=== PATIENT | female | born 1990 | race Caucasian/White ===

== ENCOUNTER 2022-03-03 09:10 | Outpatient (CLI) | payer MEDICAID, SELFPAY ==
[2022-03-03 13:24] LABS: Hepatitis B Surface Antigen* Negative (Negative)
[2022-03-03 13:33] LABS: HIV 1/2/P24 Combo Screen* Negative (Negative)
[2022-03-03 13:41] LABS: Hepatitis C Virus Antibody* Negative (Negative)
[2022-03-03 14:38] LABS: Chlamydia DNA Amplified* NOT DETECTED (No Detected); GC DNA Amplified* NOT DETECTED (No Detected)
[2022-03-05 01:32] LABS: Rapid Plasma Reagin (RPR) Non Reactive (Non Reactive)
[2022-03-05 08:45] LABS: Rubella Antibody IgG 7.3 IU/mL
== END 2022-03-03 09:11 | disposition home or self-care (01) ==
PROVIDERS: PCP Nurse Practitioner Family; Visit Provider Advanced Practice Midwife
DX: Z34.91 Encounter for supervision of normal pregnancy, unspecified, first trimester (principal); Z3A.10 10 weeks gestation of pregnancy
CPT/HCPCS: 76801; 86592; 86703; 86762; 86787; 86803; 86850; 86900; 86901; 87086; 87340; 87491; 87591

== ENCOUNTER 2022-05-11 09:42 | Outpatient (CLI) | payer OTHER, SELFPAY ==
--- NOTE | 2022-05-11 09:45 | CRLHL7_ITS ---
For Patients: As a result of the Century Cures Act, medical imaging exams and procedure reports are released immediately into your electronic medical record. You may view this report before your referring provider. If you have questions, please contact your health care provider. INDICATION: Evaluate anatomy. COMPARISON: 03/03/2022 TECHNIQUE: Real time reid scale imaging of the fetus was performed as well as color Doppler analysis of the umbilical vessels. FINDINGS: Sonographic imaging demonstrates a single living intrauterine gestation. Fetus demonstrates a regular cardiac rate of 142 beats per minute. Fetus has a transverse position, head maternal right. The placenta lies anteriorly without evidence of placenta previa. The edge of the placenta is located 5.2 cm from the internal cervical os. Amniotic fluid volume appears normal. Single deepest vertical pocket: 4.8 cm. The cervix is closed and measures 3.6 cm in length. The composite ultrasound gestational age is calculated at 20 weeks 0 days with an estimated sonographic due date of 09/28/2022. The estimated weight is 310 grams which lies at the 24th %. The following biometric measurements were obtained: Biparietal diameter: 4.7 cm/20 weeks 0 days 45th% Head circumference: 17.2 cm/19 weeks 5 days 26th% Abdominal circumference: 14.4 cm/19 weeks 5 days 30th% Femur length: 3.1 cm/19 weeks 5 days 27th% The HC/AC ratio measures: 1.20 range (1.08-1.25) On anatomic survey, there is a normal appearance of the cerebral ventricles, cavum septi pellucidi, cisterna magna and cerebellum. The nose, lips, and facial profile appear normal. The cervical, thoracic and lumbar spine are well visualized and appear normal. There is a normal four-chamber heart view and the left and right ventricular outflow tracts appear normal. The diaphragm and stomach appear normal. The kidneys and bladder also appear normal. There is a normal three-vessel cord and cord insertion site. The four extremities appear normal. IMPRESSION: Normal OB ultrasound exam with concordance of clinical and sonographic dating. No intrinsic abnormalities noted on anatomic survey. Dictated by William Lubin MD @ 05/11/2022 1:03:30 PM (Electronically Signed)
== END 2022-05-11 09:43 | disposition home or self-care (01) ==
LOC: US 09:43
PROVIDERS: PCP Nurse Practitioner Family; Visit Provider Advanced Practice Midwife
DX: Z34.92 Encounter for supervision of normal pregnancy, unspecified, second trimester (principal); Z3A.20 20 weeks gestation of pregnancy
CPT/HCPCS: 76805

== ENCOUNTER 2022-07-05 09:27 | Outpatient (CLI) | payer OTHER, SELFPAY | END 2022-07-05 09:28 | disposition home or self-care (01) | LOC: NFLDREF 07-08 05:49 | PROVIDERS: PCP Nurse Practitioner Family; Referring Provider Nurse Practitioner Family; Visit Provider Advanced Practice Midwife | DX: Z34.90 Encounter for supervision of normal pregnancy, unspecified, unspecified trimester (principal) | CPT/HCPCS: 86592 ==

== ENCOUNTER 2022-08-31 13:59 | Outpatient (CLI) | payer OTHER, SELFPAY ==
[2022-09-01 11:21] LABS: Strep B DNA Probe NEGATIVE (Negative)
[2022-09-01 11:37] LABS: Strep B Pen/Amox Allergy No
== END 2022-08-31 14:00 | disposition home or self-care (01) ==
LOC: NFLDREF 13:59
PROVIDERS: PCP Nurse Practitioner Family; Visit Provider Advanced Practice Midwife
DX: Z34.93 Encounter for supervision of normal pregnancy, unspecified, third trimester (principal); Z3A.36 36 weeks gestation of pregnancy
CPT/HCPCS: 87081; 87653

== ENCOUNTER 2022-09-21 07:16 | Inpatient (IN) | payer OTHER, SELFPAY ==
[2022-09-21] VITALS (15 sets, daily range): BP systolic 116–155; BP diastolic 68–86; PULSE 59–88; RESP 17; TEMP 36.3–37.4; O2SAT 98; BMI 32.0
[2022-09-21 08:04] LABS: Basophils Absolute Auto 0.03 K/uL (0.00-0.30); Basophils Percent Auto 0.3 % (0.0-3.0); Eosinophils Absolute Auto 0.18 K/uL (0.00-0.50); Hematocrit 34.8 % (33.0-51.0); Hemoglobin* 11.6 gm/dL (12.0-16.0); Immature Granulocytes Abs Auto 0.04 K/uL (0.00-0.30); Immature Granulocytes Pct Auto 0.4 %; Lymphocytes Percent Auto 16.3 % (20-44); Mean Corpuscular HGB Conc 33 gm/dL (32-36); Mean Corpuscular Hemoglobin 32 pg (26-34); Mean Corpuscular Volume 95 fL (80-100); Platelet Count* 294 K/uL (140-440); RDW Coefficient of Variation % 12.9 % (11.5-15.5); Red Blood Count 3.66 m/uL (4.00-5.20); White Blood Count* 9.19 K/uL (4.50-11.00)
--- NOTE | 2022-09-21 08:08 | W.PM.LDBA ---
Subjective History of Present Illness Time Seen by Provider: 07:45 Date Seen: 09/21/22 Comments: Rachael is being admitted to Labor and Delivery for IOL for hx of shoulder dystocia. She is a 31 year old G 4 P 3003 at?39.1 weeks gestation. Her full history and physical was dictated by Gladys Quach on 09/20/22. Please see this for details. Her partner is with her for support. She is planning unmedicated , but open to using nitrous again if needed. She did try a membrane sweep and castor oil yesterday which caused some contractions, but did not result in labor. OB Problem List: 1. Hx of shoulder dystocia w/ last , lunged in tub and then Farhat in the bed. May have also been r/t lack of maternal effort/no ctx. 8 lb 3 oz at 41 weeks. Review options of 36 week growth u/s and IOL at 39 weeks if desired. Would like to not be induced if possible. -IOL scheduled 09/21 per pt request, as of 09/13 she was uncertain she wants to keep this 2. Rubella non-immune Has had multiple vaccinations but doesn't develop immunity. Will not need vaccine PP. OB - Problem Based A/P Additional Plan (1) Hx of shoulder dystocia in prior , currently : Status: Acute (2) Encounter for induction of labor: Status: Acute (3) : Status: Acute Plan at 39.1 weeks GBS negative IOL for hx of shoulder dystocia otherwise uncomplicated 1. Admit to L & D 2. Brief review of induction options, she agrees to pitocin augmentation. Pitocin per protocol 3. Continuous monitoring r/t pitocin 4. IV access r/t pitocin 5. Candidate for analgesia of choice. Planning unmedicated , but open to nitrous if needed 6. Not a candidate for waterbirth r/t previous shoulder dystocia hx. 7. Anticipate progress to NVD. Delivery/Labor/Induction Plan Plan: induction Induction method: per pitocin protocol OB Exam Physical Exam Narrative: VSS, afebrile? General Appearance:? Calm, cooperative.? No acute distress.? Normal affect.? Psychiatric Exam: Alert and oriented, appropriate affect? HEENT: normocephalic, neck supple, full ROM? Respiratory:? Symmetrical chest wall movement.? Normal respiratory effort.? Clear to auscultation? Cardiac:? regular rate and rhythm? Abdomen: Gravid, non tender? Extremities:? normal and trace edema? Skin: warm, dry.??? Ctx:? Mild, irregular ctx noted on admit. FHTs:? Baseline: 145.? Variability: moderate.?? Accels: present.??? Decels:? none.? SVE: 2/60/-1, posterior? Membranes: intact? Detailed Labor and Delivery Exam Patient Gravid: Yes
[2022-09-21 08:09] LABS: Slide Review Reflex No
[2022-09-21] MEDS: OXYTOCIN 30 unit/500 ML in NS 30 UNIT/500 ML BAG IVPB (08:23)
[2022-09-21] MEDS: LACTATED RINGERS 1000 ML 1,000 ML 123 ML IV (08:23)
[2022-09-21] MEDS: LACTATED RINGERS 1000 ML 1,000 ML 112 ML IV (16:35)
--- NOTE | 2022-09-21 17:36 | W.PM.VAGDEL1 ---
Procedure Delivery date: 09/21/22 Procedure Done: Global Procedure Details: Rachael labored w/ pitocin ctx noted but not strong. Decision made to procced with AROM, large amount of clear fluid. Ctx noted to be stronger shortly after, pitocin continued. She labored in various positions, including in the tub. She began to feel increasing pressure, and the decision was made to get out of the tub r/t hx of shoulder dystocia. She tried hands and knees on the bed, and switched to squatting with the bar. Continued to push, and joshua noted, delivery occurred shortly after. At 1714 a viable? female infant delivered in vertex OA presentation over intact perineum via spontaneous vaginal?delivery. ? was placed on maternal abdomen. ?Cord was clamped and cut after a it stopped pulsing.? Nose and mouth were bulb suctioned.? Infant weight pending. ? 7 at 1 minute and 8 at 5 minutes. ?Shoulder dystocia: no. ?Nuchal cord: no. Placenta delivered spontaneously and complete at 1728 with a 3 vessel cord. Mother and were stable after?delivery. Lacerations:? No lacerations noted Blood loss: 125 mL. Blood loss measurement type: QBL? Sponge and needles counts are correct. Intrapartal Events: Labor Augmentation (AROM) and Labor Induction (Pitocin) Delivery augmentation: rupture of membranes Delivery monitor: external FHT and external uterine Route of delivery: Laceration description: None Estimated blood loss (mL): 125 Anesthesia type: Nitrous Disposition: floor Infant Gender: Female presentation: vertex Placental Delivery Description: Spontaneous Cord Description: 3 Vessels OB Vag Delivery Procedures Additional Procedures ECV: No Cook Catheter Insertion: No NST: No D&C: No Laceration Repair: No Tubal Ligation : No Other: No
[2022-09-21] MEDS: ACETAMINOPHEN 500 MG TABLET 1000 MG PO ×2 (17:59→23:43)
[2022-09-21] MEDS: IBUPROFEN 600 MG TABLET PO (21:01)
[2022-09-22] MEDS: IBUPROFEN 600 MG TABLET PO ×3 (03:27→15:54)
[2022-09-22 03:42] VITALS: BP 137/90; PULSE 72; RESP 16; TEMP 36.6; O2SAT 98
[2022-09-22 04:37] VITALS: BP 111/70
[2022-09-22] MEDS: ACETAMINOPHEN 500 MG TABLET 1000 MG PO ×3 (06:15→18:15)
[2022-09-22 07:27] VITALS: BP 128/71; PULSE 79; RESP 16; TEMP 36.8; O2SAT 98
--- NOTE | 2022-09-22 07:52 | P.DS_ITS ---
DS: Providers Provider Date Seen: 09/22/22 Date of admission: 09/21/22 07:16 Primary care physician: Krystin Atkins APRN, PEDIATRIC CLINICAL DIETICIAN Admitting Clinician: Heaven Quach CNM Attending Physician on discharge: Heaven Quach CNM Date of Discharge: 09/22/22 DS: Diagnosis Discharge Diagnosis (1) care following vaginal delivery: Status: Acute (2) due to : Status: Acute Exam Narrative: Exam Narrative: GENERAL APPEARANCE:? normal affect, alert, no distress? MOOD:? appropriate? CHEST:? clear to auscultation and percussion? HEART:? regular rate and rhythm? ABDOMEN:? soft, non-tender the uterine fundus is 2 cm Below Umbilicus, Midline and is appropriate for the stage of recovery. ? PERINEUM:? mild edema of the perineum, perineum is intact and is healing well.? EXTREMITIES:? normal and no edema? Patient has no complaints? No active bleeding?? Doing well? She is requesting discharge home.? Const: Vital Signs, click to edit/add: Vital Signs - 24 hr 09/21/22 08:08 09/21/22 08:08 09/21/22 12:04 Temperature 98.8 F Pulse Rate 64 88 Pulse Rate [Pulse Oximeter] Respiratory Rate Blood Pressure 132/86 125/73 Blood Pressure [Le ft Arm] Pulse Oximetry Oxygen Delivery [facility] 09/21/22 12:04 09/21/22 14:02 09/21/22 14:02 Temperature 99.3 F 97.3 F L Pulse Rate 67 Pulse Rate [Pulse Oximeter] Respiratory Rate Blood Pressure 132/83 Blood Pressure [Le ft Arm] Pulse Oximetry [facility] 09[facility] 17:33 09/21/22 17:33 09/21/22 17:50 Temperature 98.6 F Pulse Rate 71 78 Pulse Rate [Pulse Oximeter] Respiratory Rate Blood Pressure 143/86 H 155/76 H Blood Pressure [Le ft Arm] Pulse Oximetry [facility] 09/21/22 17:50 09/21/22 17:56 09/21/22 18:04 Temperature 99.1 F Pulse Rate 60 68 Pulse Rate [Pulse Oximeter] Respiratory Rate Blood Pressure 137/68 139/72 Blood Pressure [Le ft Arm] Pulse Oximetry Oxygen Delivery [facility] 09/21/22 18:04 09/21/22 18:19 09/21/22 18:19 Temperature 98.8 F 98.8 F Pulse Rate 59 L Pulse Rate [Pulse Oximeter] Respiratory Rate Blood Pressure 137/74 Blood Pressure [Le ft Arm] Pulse Oximetry Oxygen Delivery Me thod 09/21/22 18:34 09/21/22 18:34 09/21/22 18:49 Temperature 98.4 F Pulse Rate 61 74 Pulse Rate [Pulse Oximeter] Respiratory Rate Blood Pressure 126/75 127/73 Blood Pressure [Le ft Arm] Pulse Oximetry Oxygen Delivery Me thod 09/21/22 18:49 09/21/22 19:04 09/21/22 19:04 Temperature 98.7 F 98.2 F Pulse Rate 62 Pulse Rate [Pulse Oximeter] Respiratory Rate Blood Pressure 118/73 Blood Pressure [Le ft Arm] Pulse Oximetry Oxygen Delivery Tn thod 09/21/22 19:19 09/21/22 19:20 09/21/22 19:54 Temperature 97.8 F Pulse Rate 65 Pulse Rate [Pulse Oximeter] 77 Respiratory Rate 17 17 Blood Pressure 123/73 Blood Pressure [Le ft Arm] 123/78 Pulse Oximetry 98 [facility] 09/21/22 23:44 09/22/22 03:42 09/22/22 04:37 Temperature 97.8 F 97.9 F Pulse Rate Pulse Rate [Pulse Oximeter] 69 72 Respiratory Rate 17 16 Blood Pressure Blood Pressure [Le ft Arm] 116/79 137/90 H 111/70 Pulse Oximetry 98 98 [facility] Room Air 09/22/22 07:27 Temperature 98.2 F Pulse Rate Pulse Rate [Pulse Oximeter] 79 Respiratory Rate 16 Blood Pressure Blood Pressure [Le ft Arm] 128/71 Pulse Oximetry 98 [facility] OB - DS: Summary Hospital Course Hospital Course: The patient is a 31 year old G 4 P 4 at 39.1 weeks gestation that was admitted to the Center on 09/21/22 for elective IOL. She had an uncomplicated vaginal delivery. She delivered a viable female infant. She is breast feeding and reports things are well.? the patient has done well.? Her pain is well controlled with current medications.? She has no new complaints.? Vitals have been stable. She has remained afebrile. She is voiding without difficulty. She is passing gas and has not had a bowel movement. She is ambulating and denies any dizziness. She is planning natural family planning for control. She has done this successfully in the past. Encouraged condoms or diaphragm as needed. She declines ibuprofen or stool softener prescriptions and plans to get them over the counter. Peripartum Data Infant delivery method: Vaginal Laceration description: None Episiotomy description: None complications: none [place] Infant Gender: Female Discharge Plan: Home Status at Discharge Functional status at discharge: independent ambulation Overall status at discharge: patient is progressing back to baseline Time Spent with Patient Time attestation: Total time spent providing and/or coordinating discharge services: Discharge Plan Discharge Disposition: Home, Self-Care Date of Admission: 09/21/22 07:16 Attending Provider on Discharge: Rocio James Primary Care Provider: Krystin Atkins Condition: Stable Anticipated Discharge Date/Time: 09/22/22 19:00 Discharge Medications: Continued prenat.vits,josie,[id number] Tablet 1 tab PO QDAY cholecalciferol (vitamin D3) 50 mcg (2,000 unit) capsule 50 mcg PO QDAY omega-3 fatty acids 1,000 mg capsule 1,000 mg PO QDAY Patient Comments: patient takes 1000 DHA and 400mg EPA-3 softgels daily acetaminophen [Tylenol Extra Strength] 500 mg tablet 1,000 mg PO ONCE PRN fluticasone propionate 50 mcg/actuation spray,suspension 1 spray intranasal BID Rx Instructions: administer into each nostril Discharge Orders: Discharge Order (Routine); Ordered 09/22/22 Ordered By: Rocio James Additional Instructions: Discharge instructions were reviewed with the patient including signs and symptoms of infection and home going medications.? Lifting Restrictions: 20 pounds for 6? weeks? ?? Do not drive while taking narcotic pain meds.? Off Work or School for 6 weeks.? ?? Symptoms to report to doctor:? -Bleeding that saturates more than one pad per hour? -Passing clots larger than the size of a golf ball? -Pain not relieved by prescribed medication? -Fever above 100.4 degrees Fahrenheit? -A foul vaginal odor? -Difficulty in emotions, mood and functions? -Thoughts of hurting yourself and/or ? -Painful, reddened area in your breast? -Any drainage, redness or tenderness in your IV/epidural site? -Severe headache that doesn't improve after taking medications? -Changes in vision, including temporary loss of vision, blurred vision, and/or light sensitivity? -Upper abdominal pain (usually under ribs on the right side)? -Decrease in urination or painful, frequent urinating? -Chest pain? -Shortness of breath? -Tenderness or pain with redness and/swelling in the calf(s) of your leg? ?? Follow Up in clinic in 2 and 6 weeks.? ?? consultation services are available to all mothers and babies for the first year after delivery.? To make an appointment, please call [phone].? Activity Level: Activity as Tolerated Discharge Diet: Regular Follow Up Appointments: [facility] [Provider Group] Krystin Atkins, PHYSICIAN INTERVENTIONAL CARDIOLOGIST, PEDIATRIC CLINICAL DIETICIAN [Primary Care Provider] - Forms: MyHealth Info Instructions
[2022-09-22] MEDS: DOCUSATE SODIUM 100 MG CAPSULE PO (13:10)
[2022-09-22 13:11] VITALS: BP 127/80; PULSE 79; RESP 16; TEMP 36.3; O2SAT 98
[2022-09-22 18:29] VITALS: BP 115/60; RESP 16
== END 2022-09-22 18:25 | disposition home or self-care (01) | DRG 560 ==
PROVIDERS: Admitting Provider Advanced Practice Midwife; PCP Nurse Practitioner Family; Visit Provider Advanced Practice Midwife
DX: O80 Encounter for full-term uncomplicated delivery (principal); Z3A.39 39 weeks gestation of pregnancy; Z37.0 Single live birth
CPT/HCPCS: 36415; 85025; 86850; 86900; 86901; A9270; J7120

== ENCOUNTER 2023-11-23 14:15 | Outpatient (CLI) | payer OTHER, SELFPAY | END 2023-11-23 14:16 | disposition home or self-care (01) | PROVIDERS: PCP Nurse Practitioner Family; Visit Provider Registered Nurse | DX: Z34.91 Encounter for supervision of normal pregnancy, unspecified, first trimester (principal); Z3A.09 9 weeks gestation of pregnancy | CPT/HCPCS: 76817; 86592; 86703; 86704; 86706; 86762; 86787; 86803; 86850; 86900; 86901; 87086; 87340 ==

== ENCOUNTER 2023-12-12 11:04 | Outpatient (CLI) | payer OTHER, SELFPAY ==
--- NOTE | 2023-12-12 11:15 | CRLHL7_ITS ---
For Patients: As a result of the Cures Act, medical imaging exams and procedure reports are released immediately into your electronic medical record. You may view this report before your referring provider. If you have questions, please contact your health care provider. RIGHT BREAST ULTRASOUND CLINICAL HISTORY: RIGHT breast lump. COMPARISON: None. TECHNIQUE: Real-time ultrasound imaging of the RIGHT breast with imaging documentation. FINDINGS: Targeted RIGHT breast ultrasound performed at 12 o`clock 3 cm from the nipple. Normal fibroglandular tissue. No solid mass or cyst. Normal vascularity. IMPRESSION: No suspicious findings. RECOMMENDATIONS: Clinical follow-up. Results and recommendations were discussed with the patient at the time of the exam. BI-RADS Category 2: Benign A lay language report of this examination will be provided to the patient. Dictated by William Lubin MD @ 12/12/2023 11:43:41 AM /Dictated by: William Lubin MD @ 12/12/2023 11:43:00 AM (Electronically Signed)
== END 2023-12-12 11:05 | disposition home or self-care (01) ==
PROVIDERS: PCP Nurse Practitioner Family; Visit Provider Registered Nurse
DX: N63.10 Unspecified lump in the right breast, unspecified quadrant (principal)
CPT/HCPCS: 76642

== ENCOUNTER 2024-02-06 12:07 | Outpatient (CLI) | payer OTHER, SELFPAY ==
--- NOTE | 2024-02-06 12:15 | CRLHL7_ITS ---
For Patients: As a result of the Century Cures Act, medical imaging exams and procedure reports are released immediately into your electronic medical record. You may view this report before your referring provider. If you have questions, please contact your health care provider. INDICATION: Evaluate anatomy. COMPARISON: 11/23/2023 TECHNIQUE: Real time reid scale imaging of the fetus was performed as well as color Doppler analysis of the umbilical vessels. FINDINGS: Sonographic imaging demonstrates a single living intrauterine gestation. Fetus demonstrates a regular cardiac rate of 147 beats per minute. Fetus has a vertex position. The placenta lies anteriorly without evidence of placenta previa. Large placental roche is present measuring 10.2 x 2.3 x 7.8 cm. Edge of the placenta located 6.1 cm from the internal cervical os. Amniotic fluid volume appears normal. Single deepest vertical pocket: 4.2 cm. The cervix is closed and measures 4.1 cm in length. The composite ultrasound gestational age is calculated at 20 weeks 1 day with an estimated sonographic due date of 06/24/2024. The estimated weight is 326 grams which lies at the 63rd %. The following biometric measurements were obtained: Biparietal diameter: 4.7 cm/20 weeks 1 day 69th% Head circumference: 17.9 cm/20 weeks 3 days 73rd% Abdominal circumference: 14.9 cm/20 weeks 1 day 59th% Femur length: 3.1 cm/19 weeks 5 days 44th% The HC/AC ratio measures: 1.21 range (1.07-1.25) On anatomic survey, there is a normal appearance of the cerebral ventricles, cavum septi pellucidi, cisterna magna and cerebellum. The nose, lips, and facial profile appear normal. The cervical, thoracic and lumbar spine are well visualized and appear normal. There is a normal four-chamber heart view and the left and right ventricular outflow tracts appear normal. The diaphragm and stomach appear normal. The kidneys and bladder also appear normal. There is a normal three-vessel cord and cord insertion site. The four extremities appear normal. IMPRESSION: Concordance of clinical and sonographic dating. No intrinsic abnormalities noted on anatomic survey. Large placental roche is present measuring 10.2 x 2.3 x 7.8 cm. Dictated by William Lubin MD @ 02/06/2024 2:51:13 PM (Electronically Signed)
== END 2024-02-06 12:08 | disposition home or self-care (01) ==
PROVIDERS: PCP Nurse Practitioner Family; Visit Provider Advanced Practice Midwife
DX: Z34.92 Encounter for supervision of normal pregnancy, unspecified, second trimester (principal); Z3A.20 20 weeks gestation of pregnancy
CPT/HCPCS: 76805

== ENCOUNTER 2024-04-02 13:31 | Outpatient (CLI) | payer OTHER, SELFPAY | END 2024-04-02 13:32 | disposition home or self-care (01) | LOC: NFLDREF 04-09 00:40 | PROVIDERS: PCP Nurse Practitioner Family; Referring Provider Nurse Practitioner Family; Visit Provider Advanced Practice Midwife | DX: Z34.92 Encounter for supervision of normal pregnancy, unspecified, second trimester (principal); Z3A.27 27 weeks gestation of pregnancy | CPT/HCPCS: 86592 ==

== ENCOUNTER 2024-06-06 12:36 | Outpatient (CLI) | payer OTHER, SELFPAY | END 2024-06-06 12:37 | disposition home or self-care (01) | LOC: NFLDREF 06-09 11:41 | PROVIDERS: PCP Nurse Practitioner Family; Referring Provider Nurse Practitioner Family; Visit Provider Advanced Practice Midwife | DX: Z34.83 Encounter for supervision of other normal pregnancy, third trimester (principal) | CPT/HCPCS: 87081; 87653 ==

== ENCOUNTER 2024-06-28 11:43 | Inpatient (IN) | payer OTHER, SELFPAY ==
[2024-06-28] VITALS (19 sets, daily range): BP systolic 113–155; BP diastolic 69–93; PULSE 63–103; RESP 16–18; TEMP 36.4–36.8; O2SAT 97; BMI 31.4
[2024-06-28 11:37] LABS: Amnisure Rom* POSITIVE
--- NOTE | 2024-06-28 11:52 | P.LDBA_ITS ---
Subjective History of Present Illness Date Seen: 06/28/24 Narrative: Patient is being admitted to Labor and Delivery for SROM at term of clear fluid. Amnisure positive. She is a 33 year old at 40 1/7 weeks gestation. Her full history and physical was dictated by me on 06/13/2024. Please see this for details. Specific Issues/Plans G 5 P 4004 H&P completed 06/13/2024 by Judy GUIDO # Bahai needs: Would like a publication manager present if major medical complication occurs. # History of possible shoulder dystocia Subsequent delivery in 2022, no shoulder dystocia Reviewed 04/10 with NDP and discussed with [facility] team who agree that waterbirth is an option with history of subsequent uncomplicated delivery #Rubella non-immune. Per chart review: Has had multiple vaccinations but doesn't develop immunity. Will not need vaccine PP. #Placental roche with 20wk FAS 10.2 x 2.3 x 7.8cm #Hernia referral to general surgery completed, planning to address post could consider elective surgery if progressive symptoms nearing end of but not ideal Imaginst tri US: 11/23/2023-Normal first trimester OB ultrasound exam. Gestational age calculated at 9 weeks 0 days with a sonographic due date of 06/27/2024 Anatomy US: 02/05/2025-Concordance of clinical and sonographic dating. No intrinsic abnormalities noted on anatomic survey. Large placental roche is present measuring 10.2 x 2.3 x 7.8 cm. Flu: [] Covid: Not vaccinated. Recommended. [] Hep B nonimmune. has been revaccinated and does not get immunity OB - Problem Based A/P Additional Plan (1) SROM (spontaneous rupture of membranes): Status: Acute (2) Supervision of other normal : Status: Acute (3) Hx of shoulder dystocia in prior , currently : Problem details: Vague notes, possibly from ineffective pushing with 3rd baby. No problems with 4th. Reviewed with team. Can have a waterbirth Status: Acute Plan ASSESSMENT:?? 33 at 40 1/7 weeks gestation?? complicated by:??placental roche with no vaginal bleeding, inguinal hernia without strangulation Labor type: Spontaneous ROM, Not yet in labor?? Category 1 FHR pattern.??? Labor complicated by: none?? GBS negative PLAN:?? 1. Routine intrapartum cares as ordered. Continue with expectant management, open to pitocin prn when waterbirth room is cleaned.?? 2. Monitoring per policy, intermittent. Continuous if augmented. 3. Planning unmedicated . Desires water . Consent signed. Hep C negative. Candidate for analgesia of choice.??? 4. Patient encouraged to reposition and ambulate to promote physiologic labor and .?? 5. Anticipate ? OB Result Labs Blood Type: A (+) positive Rubella: nonimmune (multiple vaccines and no conversion to immunity) RPR/VDLR: nonreactive GBS Status: negative HBsAG: negative OB Exam Physical Exam Vital signs: Temp Pulse BP 98.2 F 70 120/81 06/28/24 11:36 06/28/24 11:36 06/28/24 11:36 Narrative: Vitals Reviewed Constitutional:? Alert and oriented x3 HEENT:? Normocephalic, atraumatic Neck:? Supple Lungs:? Clear to auscultation bilaterally Heart:? Regular rate and rhythm, no murmur, rub or gallop Abdomen:? Soft, nontender, and gravid. Vertex by Amor's, confirmed with Ultrasound abdominal. Extremities:? No edema or erythema Cervix:deferred due to ROM NST: 130 bpm/moderate variability/accelerations present/decelerations absent/contractions sporadic and mild
[2024-06-28] MEDS: OXYTOCIN 30 unit/500 ML in NS 30 UNIT/500 ML BAG IVPB (14:08)
[2024-06-28] MEDS: LACTATED RINGERS 1000 ML 1,000 ML 125 ML IV (14:08)
[2024-06-28] MEDS: ACETAMINOPHEN 500 MG TABLET 1000 MG PO ×2 (17:54→23:57)
--- NOTE | 2024-06-28 17:55 | W.PM.OBVAGDE ---
OB Procedure Vag Delivery Mother Details Mother Details: The patient is a 33 year-old, 5, Para 4, admitted on 06/28/24 at 40 1/7 weeks gestation. Admission Date: 06/28/24 Additional Details Amniotic Membrane Status: SROM Amniotic Membrane Rupture Date: 06/28/24 Amniotic Membrane Rupture Time: 06:30 Amniotic Membrane Fluid Description: Clear Analgesia/Anesthesia Type: None Waterbirth: No Pitcoin: Yes Intrapartal Events: Labor Augmentation Delivery augmentation: pitocin Labor Onset: 16:00 Complete: 17:36 Pushin:30 (when consistent and productive pushing) Heart: heart tones during second stage were cat 2 with normal baseline, moderate variability, variable decels. Pt very mobile trying to cope with labor. Adjusting monitors frequently as much as able. Delivery Details Delivery Date: 06/28/24 Delivery Time: 17:38 Route of delivery: Gender: Male Viability: Alive; Heart Rate Present Position at Delivery: OA Delivery Details: Patient was admitted for spontaneous rupture of membranes and progressed with augmentation.. SROM noted at 0630 with clear fluid. Baby's head was +2/+3 and Rachael had dilated only 5 cm with a very strong urge to push. coached to breathe, change positions, be open to a longer labor for this baby boy. Pitocin was titrated up as indicated. Eventually she agreed to try pushing the cervix back. A couple attempts were made in the tub but the cervix returned when pressure was released. She agreed to try to get out of the tub with one more attempt in left side lying. this was immediately successful and the cervix retracted completely. She birthed her baby with the next contraction. Patient was complete at 1736 and pushing at 1600 intermittently when she was not complete, unable to fight the urge to push. Productive pushing began at 1736. of a viable male at 1738 in left lateral. Vertex delivered OA. No nuchal cord or shoulder dystocia. Pt preferred to wait for the next contraction after the head was borm. Anterior should delivered with constant traction and flexion of the head. Body delivered easily and without incident. passed to mothers abdomen with a vigorous cry. Cord was clamped and cut at > 5 minutes. APGARS were 9 at one minute and 9 at five minutes respectively. Intact placenta with a 3 vessel cord delivered spontaneously at 1746. Fundus firm. No lacerations. QBL 150 cc. Mother and baby stable; mother plans to breastfeed. weight pending.? 1 Minute Interval Total Score: 9 5 Minute Interval Total Score: 9 Additional Details Shoulder Dystocia: No Placenta Delivery Time: 17:46 Placental Delivery Description: Spontaneous Procedure Done: Global Blood Loss: 150 Laceration: None Blood Loss Measurement Type: QBL Bakri Used: No Sponge/Need Count Correct: Yes Cord Vessel Description: 3 Vessels and Clamped/Cut Event Summary Status: Mother and infant were stable after delivery. Disposition: floor
[2024-06-28] MEDS: IBUPROFEN 600 MG TABLET PO (21:09)
[2024-06-29] MEDS: IBUPROFEN 600 MG TABLET PO ×3 (03:42→15:09)
[2024-06-29 03:59] VITALS: BP 114/76; PULSE 72; RESP 16; TEMP 36.6; O2SAT 98
[2024-06-29 06:42] LABS: Hemoglobin* 10.7 gm/dL (12.0-16.0)
[2024-06-29] MEDS: ACETAMINOPHEN 500 MG TABLET 1000 MG PO (07:13)
[2024-06-29 08:00] VITALS: BP 121/84; PULSE 75; RESP 16; TEMP 36.5; O2SAT 98
--- NOTE | 2024-06-29 08:33 | P.DS_ITS ---
DS: Providers Provider Date Seen: 06/29/24 Date of admission: 06/28/24 11:43 Primary care physician: Krystin Atkins APRN, THREAD CHECKER Admitting Clinician: Louise Chou CNM Attending Physician on discharge: Cait Dejesus CNM DS: Diagnosis Discharge Diagnosis (1) care and examination immediately after delivery: Status: Acute (2) Lactating mother: Status: Acute Exam Narrative: Exam Narrative: GENERAL APPEARANCE:? normal affect, alert, no distress MOOD:? appropriate CHEST:? clear to auscultation HEART:? regular rate and rhythm ABDOMEN:? soft, non-tender the uterine fundus is At Umbilicus, Midline and is appropriate for the stage of recovery. PERINEUM:? mild edema of the perineum. EXTREMITIES:? normal and no edema Const: Vital Signs, click to edit/add: Vital Signs - 24 hr 06/28/24 11:36 06/28/24 14:18 06/28/24 15:09 Temperature 98.2 F 97.8 F 97.5 F L Pulse Rate 70 85 103 H Pulse Rate [Blood Pressure Cuff] Respiratory Rate 16 16 Blood Pressure 120/81 123/83 130/89 Blood Pressure [Ri ght Arm] Pulse Oximetry Oxygen Delivery Me thod 06/28/24 16:21 06/28/24 16:59 06/28/24 17:46 Temperature 97.7 F 98.2 F Pulse Rate 84 86 Pulse Rate [Blood Pressure Cuff] 63 Respiratory Rate 16 18 Blood Pressure 131/77 124/76 Blood Pressure [Ri ght Arm] 120/69 Pulse Oximetry Oxygen Delivery Me thod 06/28/24 18:00 06/28/24 18:14 06/28/24 18:29 Temperature Pulse Rate Pulse Rate [Blood Pressure Cuff] 78 96 76 Respiratory Rate Blood Pressure Blood Pressure [Ri ght Arm] 134/74 155/93 H 154/92 H Pulse Oximetry Oxygen Delivery Me thod 06/28/24 18:35 06/28/24 18:37 06/28/24 18:44 Temperature Pulse Rate Pulse Rate [Blood Pressure Cuff] 68 Respiratory Rate Blood Pressure Blood Pressure [Ri ght Arm] 151/91 H 133/81 138/82 Pulse Oximetry Oxygen Delivery Me thod 06/28/24 19:05 06/28/24 19:14 06/28/24 19:29 Temperature Pulse Rate Pulse Rate [Blood Pressure Cuff] 67 69 83 Respiratory Rate 18 18 Blood Pressure Blood Pressure [Ri ght Arm] 136/84 116/75 121/75 Pulse Oximetry Oxygen Delivery Me thod 06/28/24 19:45 06/28/24 20:20 06/28/24 20:58 Temperature 98.3 F Pulse Rate Pulse Rate [Blood Pressure Cuff] 80 78 90 Respiratory Rate 18 18 18 Blood Pressure Blood Pressure [Ri ght Arm] 123/76 138/83 119/70 Pulse Oximetry Oxygen Delivery Me thod 06/28/24 23:59 06/29/24 03:59 Temperature 97.7 F 97.9 F Pulse Rate Pulse Rate [Blood Pressure Cuff] 81 72 Respiratory Rate 16 16 Blood Pressure Blood Pressure [Ri ght Arm] 113/77 114/76 Pulse Oximetry 97 98 Oxygen Delivery Me thod Room Air Room Air OB - DS: Summary Hospital Course Hospital Course: Rachael is a 33 y.o. G 5 P 5 who was admitted to [facility] for spontaneous onset of labor. ?She had a NVD that was uncomplicated. The patient feels well. ?The pain is well controlled with current medications. ?She has no new complaints. ?She is breast feeding and reports things are going well. the patient has done well.? Vitals have been stable.? She has remained afebrile.? Has a good appetite, is tolerating a general diet. ?She is voiding without difficulty.? She is passing gas and has not had a bowel movement.? She is ambulating and denies any dizziness.? Has small amount of rubra lochia. Problems: None Discharge home with baby.? Follow up in 2 weeks and 6 weeks.? , may see if needed? Hgb 10.7. ?? For pain control of perineum, breast and pelvic pain, take 600 mg Ibuprofen every 6 hours as needed by mouth or 1000 mg acetaminophen (Tylenol) every 6 hours by mouth as needed. You can alternate these so you are taking something every 3 hours as needed. A heating pad can also be used for your abdomen or breasts. You may also take docusate sodium up to twice daily to soften your stools and help to prevent constipation. You may wean off of it when your stools return to normal.? Peripartum Data Infant delivery method: Vaginal Laceration description: None complications: none Gender: Male Discharge Plan: Home Status at Discharge Functional status at discharge: independent ambulation Overall status at discharge: patient is progressing back to baseline Time Spent with Patient Time attestation: Total time spent providing and/or coordinating discharge services: Time spent: Less than 30 minutes Discharge Plan Discharge Disposition: Home, Self-Care Date of Admission: 06/28/24 11:43 Attending Provider on Discharge: Cait Dejesus Primary Care Provider: Krystin Atkins Condition: Stable Anticipated Discharge Date/Time: 06/29/24 18:00 Discharge Medications: New docusate sodium 100 mg Capsule 100 mg PO DAILY Qty: 0 0RF ibuprofen 600 mg Tablet 600 mg PO Q6H PRNQty: 0 0RF Continued prenat.vits,josie,yxz-mowk-epyrj Tablet 1 tab PO QDAY cholecalciferol (vitamin D3) 50 mcg (2,000 unit) capsule 50 mcg PO QDAY omega-3 fatty acids 1,000 mg capsule 1,000 mg PO QDAY Patient Comments: patient takes 1000 DHA and 400mg EPA-3 softgels daily acetaminophen [Tylenol Extra Strength] 500 mg tablet 1,000 mg PO ONCE PRN fluticasone propionate 50 mcg/actuation spray,suspension 1 spray intranasal BID Rx Instructions: administer into each nostril albuterol sulfate 2.5 mg /3 mL (0.083 %) solution for nebulization 2.5 mg inhalation Q4-6H PRN (Reason: shortness of breath or wheezing) Qty: 90 3RF valacyclovir [Valtrex] 1 gram tablet 2,000 mg PO BID PRN (Reason: cold sores) Qty: 16 6RF Discharge Orders: Discharge Order (Routine); Ordered 06/29/24 Ordered By: Cait Dejesus Patient Education: OB Over the Counter Medication Information, OB Vaginal/Breast Feeding Additional Instructions: Discharge instructions were reviewed with the patient including signs and symptoms of infection and home going medications Nothing vaginally for 6 weeks: no tampons or intercourse Off Work or School for 6 weeks 2-week visit: discuss feeding concerns, review control options and screen for anxiety/depression. 6-week visit for an annual exam. consultation services are available to all mothers and babies for the first year after delivery.? To make an appointment, please call [phone]. Activity Level: Activity as Tolerated Discharge Diet: Regular Follow Up Appointments: [facility] [Provider Group] Forms: [employer] Info Instructions
[2024-06-29] MEDS: DOCUSATE SODIUM 100 MG CAPSULE PO (09:22)
[2024-06-29 12:00] VITALS: BP 126/76; PULSE 70; RESP 16; TEMP 36.4; O2SAT 100
== END 2024-06-29 18:53 | disposition home or self-care (01) | DRG 560 ==
LOC: OB OUT 11:43 → OB 11:43
PROVIDERS: Admitting Provider Midwife; PCP Nurse Practitioner Family; Visit Provider Midwife
DX: O80 Encounter for full-term uncomplicated delivery (principal); Z3A.40 40 weeks gestation of pregnancy; Z37.0 Single live birth; Z28.39 Other underimmunization status
CPT/HCPCS: 36415; 84112; 85018; 86592; A9270; J7120